=== PATIENT | female | born 1945 | race Caucasian/White ===

== ENCOUNTER 2017-01-23 18:43 | Inpatient (IN) | payer MEDICARE ==
[~2017-01-23] VITALS: Ht 152.4 cm; Wt 53.9 kg
[2017-01-23 18:51] VITALS: BP 203/110; PULSE 113; RESP 24; TEMP 98.4; O2SAT 98
--- NOTE | 2017-01-23 18:59 | PD ---
GUILLERMO . PATSY Chief Complaint: Psychiatric Symptoms Time Seen by Provider: 18:59 Travel History International Travel<30 days: No Contact w/Intl Traveler<30days: No Traveled to known affect area: No History of Present Illness HPI 71-year-old female with history of dementia here under Rueda act. Patient apparently was sent to an assisted living facility today and all of a sudden became very aggressive towards staff. She was disturbing all of the other residents and was brought in under Rueda act. Patient has no recollection of what went on. She has no idea where she is. She denies any suicide or homicidal ideation. She is very loud, aggressive and agitated. PFSH Past Medical History Dementia: Yes Social History Alcohol Use: No Tobacco Use: No Substance Use: No Allergies-Medications (Allergen,Severity, Reaction): Coded Allergies: No Known Allergies (Verified Allergy, Unknown, 01/23/17) Reported Meds & Prescriptions Reported Meds & Active Scripts Active No Active Prescriptions or Reported Medications Review of Systems General / Constitutional: No: Fever Eyes: No: Visual changes HENT: No: Headaches Cardiovascular: No: Chest Pain or Discomfort Respiratory: No: Shortness of Breath Gastrointestinal: No: Abdominal Pain Genitourinary: No: Dysuria Musculoskeletal: No: Pain Skin: No Rash Neurologic: No: Weakness Psychiatric: Positive: Disorder of Thought, No: Depression Endocrine: No: Polydipsia Hematologic/Lymphatic: No: Easy Bruising Physical Exam Narrative GENERAL: AAO x 1, SKIN: Warm and dry. No visible rashes or bruising. HEAD: Normocephalic and atraumatic. EYES: No scleral icterus. No injection or drainage. EOM intact, PERRLA ENT: No nasal drainage noted. Mucous membranes pink. Airway patent. NECK: Supple, trachea midline. No JVD. CARDIOVASCULAR: Regular rate and rhythm without murmurs, gallops, or rubs. RESPIRATORY: Breath sounds equal bilaterally. No accessory muscle use. No rhonchi or rales. GASTROINTESTINAL: Abdomen soft, non-tender, nondistended. No rebound or guarding EXTREMITIES: No cyanosis or edema. BACK: No obvious deformity. No CVA tenderness. NEURO: Grossly intact PSYCH: AAO x 1, agitated and aggressive Data Data Last Documented VS Vital Signs Date Time Temp Pulse Resp B/P (MAP) Pulse Ox O2 Delivery O2 Flow Rate FiO2 01/23/17 20:27 97 16 145/63 (90) 97 Room Air 01/23/17 18:51 98.4 Orders Orders Complete Blood Count With Diff (01/23/17 19:04) Comprehensive Metabolic Panel (01/23/17 19:04) Urinalysis - C+S If Indicated (01/23/17 19:04) Psych Screen (01/23/17 19:04) Drug Screen, Random Urine (01/23/17:04) ^ Sitter (01/23/17 19:04) Lorazepam Inj (Ativan Inj) (01/23/17 19:30) Labs Laboratory Tests Test 01/23/17 19:30 01/23/17 20:00 White Blood Count 16.4 TH/MM3 Red Blood Count 4.82 MIL/MM3 Hemoglobin 14.2 GM/DL Hematocrit 43.7 % Mean Corpuscular Volume 90.6 FL Mean Corpuscular Hemoglobin 29.4 PG Mean Corpuscular Hemoglobin Concent 32.5 % Red Cell Distribution Width 13.5 % Platelet Count 291 TH/MM3 Mean Platelet Volume 10.6 FL Neutrophils (%) (Auto) 82.0 % Lymphocytes (%) (Auto) 10.9 % Monocytes (%) (Auto) 6.1 % Eosinophils (%) (Auto) 0.4 % Basophils (%) (Auto) 0.6 % Neutrophils # (Auto) 13.5 TH/MM3 Lymphocytes # (Auto) 1.8 TH/MM3 Monocytes # (Auto) 1.0 TH/MM3 Eosinophils # (Auto) 0.1 TH/MM3 Basophils # (Auto) 0.1 TH/MM3 CBC Comment DIFF FINAL Differential Comment Blood Urea Nitrogen 10 MG/DL Creatinine 1.05 MG/DL Total Protein 8.1 GM/DL Albumin 4.1 GM/DL Calcium Level 9.1 MG/DL Alkaline Phosphatase 114 U/L Aspartate Amino Transf (AST/SGOT) 60 U/L Alanine Aminotransferase (ALT/SGPT) 28 U/L Total Bilirubin 0.8 MG/DL Sodium Level 136 MEQ/L Potassium Level 5.6 MEQ/L Chloride Level 105 MEQ/L Carbon Dioxide Level 22.2 MEQ/L Anion Gap 9 MEQ/L Estimat Glomerular Filtration Rate 52 ML/MIN Urine Color YELLOW Urine Turbidity CLEAR Urine pH 5.0 Urine Specific [place] 1.010 Urine Protein NEG mg/dL Urine Glucose (UA) NEG mg/dL Urine Ketones 10 mg/dL Urine Occult Blood TRACE Urine Nitrite NEG Urine Bilirubin NEG Urine Urobilinogen LESS THAN 2.0 MG/DL Urine Leukocyte Esterase SMALL Urine RBC 1 /hpf Urine WBC 3 /hpf Urine Squamous Epithelial Cells <1 /hpf Urine Bacteria RARE /hpf Microscopic Urinalysis Comment CULT NOT INDICATED Urine Opiates Screen NEG Urine Barbiturates Screen NEG Urine Amphetamines Screen NEG Urine Benzodiazepines Screen NEG Urine Cocaine Screen NEG Urine Cannabinoids Screen NEG MDM Medical Decision Making Medical Screen Exam Complete: Yes Emergency Medical Condition: Yes Medical Record Reviewed: Yes Differential Diagnosis Dementia, adjustment disorder, stress reaction Narrative Course 71-year-old female here on a Rueda act for aggressive behavior. Her blood pressures elevated, but she is very agitated. I think this may have something to do with her blood pressure. On examination patient does demonstrate some aggressive behavior. Labs have been ordered. Psych screen ordered. If labs are within normal limits , patient will be medically cleared for psych screen. Laboratory Tests Test 01/23/17 19:30 01/23/17 20:00 White Blood Count 16.4 TH/MM3 Red Blood Count 4.82 MIL/MM3 Hemoglobin 14.2 GM/DL Hematocrit 43.7 % Mean Corpuscular Volume 90.6 FL Mean Corpuscular Hemoglobin 29.4 PG Mean Corpuscular Hemoglobin Concent 32.5 % Red Cell Distribution Width 13.5 % Platelet Count 291 TH/MM3 Mean Platelet Volume 10.6 FL Neutrophils (%) (Auto) 82.0 % Lymphocytes (%) (Auto) 10.9 % Monocytes (%) (Auto) 6.1 % Eosinophils (%) (Auto) 0.4 % Basophils (%) (Auto) 0.6 % Neutrophils # (Auto) 13.5 TH/MM3 Lymphocytes # (Auto) 1.8 TH/MM3 Monocytes # (Auto) 1.0 TH/MM3 Eosinophils # (Auto) 0.1 TH/MM3 Basophils # (Auto) 0.1 TH/MM3 CBC Comment DIFF FINAL Differential Comment Blood Urea Nitrogen 10 MG/DL Creatinine 1.05 MG/DL Total Protein 8.1 GM/DL Albumin 4.1 GM/DL Calcium Level 9.1 MG/DL Alkaline Phosphatase 114 U/L Aspartate Amino Transf (AST/SGOT) 60 U/L Alanine Aminotransferase (ALT/SGPT) 28 U/L Total Bilirubin 0.8 MG/DL Sodium Level 136 MEQ/L Potassium Level 5.6 MEQ/L Chloride Level 105 MEQ/L Carbon Dioxide Level 22.2 MEQ/L Anion Gap 9 MEQ/L Estimat Glomerular Filtration Rate 52 ML/MIN Urine Color YELLOW Urine Turbidity CLEAR Urine pH 5.0 Urine Specific [place] 1.010 Urine Protein NEG mg/dL Urine Glucose (UA) NEG mg/dL Urine Ketones 10 mg/dL Urine Occult Blood TRACE Urine Nitrite NEG Urine Bilirubin NEG Urine Urobilinogen LESS THAN 2.0 MG/DL Urine Leukocyte Esterase SMALL Urine RBC 1 /hpf Urine WBC 3 /hpf Urine Squamous Epithelial Cells <1 /hpf Urine Bacteria RARE /hpf Microscopic Urinalysis Comment CULT NOT INDICATED Blood pressure improved to 145/63. Patient had to be given Ativan to calm her down. Potassium is 5.6, however hemolysis was noted. Her WBC is elevated and she has a left shift. UA appreciated. This is likely reactive and due to stress. I have discussed the case with my attending Dr. Ruff who will medically clear the patient. Diagnosis Primary Impression: Agitated Scripts No Active Prescriptions or Reported Meds Condition: Stable Mary Amaya Jan 23, 2017 18:59
[2017-01-23] MEDS ORDERED: LORazepam 2 MG/ML VIAL IV PUSH ONE (19:30)
[2017-01-23 19:49] LABS: AUTOMATED NEUTROPHIL # 13.5 TH/MM3 (1.8-7.7); BASOPHIL # 0.1 TH/MM3 (0-0.2); BASOPHIL % 0.6 % (0.0-2.0); EOSINOPHIL # 0.1 TH/MM3 (0-0.4); EOSINOPHIL % 0.4 % (0.0-4.0); HEMATOCRIT 43.7 % (35.0-46.0); HEMO FLAGS DIFF FINAL; LYMPH % 10.9 % (9.0-44.0); LYMPHOCYTE # 1.8 TH/MM3 (1.0-4.8); MEAN CELL VOLUME 90.6 FL (80.0-100.0); MEAN CORPUSCULAR HEMOGLOBIN 29.4 PG (27.0-34.0); MEAN CORPUSCULAR HGB CONC 32.5 % (32.0-36.0); MONO % 6.1 % (0.0-8.0); PLATELET COUNT 291 TH/MM3 (150-450); RED BLOOD COUNT 4.82 MIL/MM3 (4.00-5.30); RED CELL DISTRIBUTION WIDTH 13.5 % (11.6-17.2); WHITE BLOOD COUNT 16.4 TH/MM3 (4.0-11.0)
[2017-01-23 20:07] LABS: ALKALINE PHOSPHATASE 114 U/L (45-117); ALT (GPT) 28 U/L (10-53); TOTAL BILIRUBIN ADULT 0.8 MG/DL (0.2-1.0)
[2017-01-23 20:18] LABS: BLOOD UREA NITROGEN 10 MG/DL (7-18); GLOMERULAR FILTRATION RATE 52 ML/MIN (>89)
[2017-01-23 20:19] LABS: ANION GAP 9 MEQ/L (5-15); AST (GOT) 60 U/L (15-37); BICARBONATE 22.2 MEQ/L (21.0-32.0); CHLORIDE 105 MEQ/L (98-107); POTASSIUM 5.6 MEQ/L (3.5-5.1); SODIUM (NA) 136 MEQ/L (136-145)
[2017-01-23 20:26] LABS: BACTERIA, URINE RARE /hpf; BLOOD, URINE TRACE (NEG); COMMENT (UR) CULT NOT INDICATED; CULTURE IF INDICATED CULT NOT INDICATED; GLUCOSE,URINE NEG (NEG); KETONE, URINE 10 mg/dL (NEG); NITRITE,URINE NEG (NEG); SQUAMOUS EPITHELIAL CELL URINE <1 /hpf (0-5); URINE COLOR YELLOW (YELLW/STRAW)
[2017-01-23 20:27] VITALS: BP 145/63; PULSE 97; RESP 16; O2SAT 97
[2017-01-23 22:00] VITALS: BP 168/79; PULSE 117; RESP 17; TEMP 96.7; O2SAT 91
[2017-01-24 02:08] VITALS: BP 95/53; PULSE 97; RESP 18; TEMP 98; O2SAT 98
[2017-01-24] MEDS ORDERED: ACETAMINOPHEN 325 MG TAB PO PRN (07:00)
[2017-01-24] MEDS ORDERED: ALUMINUM/MAGNESIUM/SIMETH 30 ML CUP PO PRN (07:00)
[2017-01-24] MEDS ORDERED: MAGNESIUM HYDROXIDE SUSP 30 ML CUP PO PRN (07:00)
[2017-01-24 08:30] VITALS: BP 128/59; PULSE 92; RESP 18; TEMP 97.8; O2SAT 97
[2017-01-24] MEDS: NICOTINE 21 MG/24 HR PATCH T-DERMAL SCH ×3 (09:00→12:43)
[2017-01-24] MEDS: REMOVE OLD NICOTINE PATCH T-DERMAL SCH ×3 (09:05→21:00)
[2017-01-24] MEDS: LORazepam 0.5 MG TAB age > 65 yrs PO PRN (11:40)
[2017-01-24] MEDS ORDERED: HALOPERIDOL LACTATE 5 MG/ML AMP IM ONE (12:15)
[2017-01-24] MEDS ORDERED: LORazepam 2 MG/ML VIAL IM ONE (12:15)
[2017-01-24 16:45] VITALS: BP 138/66; PULSE 94; RESP 18; TEMP 97.9; O2SAT 96
[2017-01-24] MEDS: traZODone HCL 50 MG TAB PO PRN (22:33)
[2017-01-24] MEDS: LORazepam 2 MG/ML VIAL - age > 65 yrs IM PRN (22:35)
[2017-01-25 06:15] VITALS: BP 116/58; PULSE 83; RESP 16; TEMP 97.3; O2SAT 97
--- NOTE | 2017-01-25 18:27 | HHI.HP ---
Provisional Diagnosis Admission Date Jan 24, 2017 at 06:38 [place] I. Neurocognitive disorder with behavioral disturbance [place] II. deferred [place] III. denies [place] IV. limited social support, [place] V. 35 Certification of Person's Competence To Provide Express and Informed Consent I have personally examined Maria Antonia Arreola , a person being served at [facility] on, Jan 25, 2017 18:26. Express and informed consent means consent voluntarily given in writing, by a competent person, after sufficient explanation and disclosure of the subject matter involved to enable the person to make a knowing and willful decision without any element of force, fraud, deceit, duress, or other form of constraint or coercion. This person is 18 years of age or older, is not now known to be incompetent to consent to treatment with a guardian advocate, and does not have a health care surrogate or proxy currently making medical treatment decisions. I have found this person to be one of the following: [] Competent to provide express and informed consent, as defined above, for voluntary admission to this facility and is competent to provide express and informed consent for treatment. He/she has the consistent capacity to make well reasoned, willful, and knowing decisions concerning his or her medical or mental health treatment. The person fully and consistently understands the purpose of the admission for examination/placement and is fully capable of personally exercising all rights [place] [x] Incompetent to provide express and informed consent to voluntary admission, and this is incompetent to provide express and informed consent to treatment. The person must be transferred to involuntary status and a petition for a guardian advocate filed with the Circuit Court. [] Refusing to provide express and informed consent to voluntary admission but is competent to provide express and informed consent for treatment. The person must be discharged or transferred to involuntary status. Form shall be completed within 24 hours of a person's arrival at the receiving facility and filed in the clinical record of each person: 1. Admitted on a voluntary basis 2. Permitted to provide express and informed consent to his/her own treatment 3. Allowed to transfer from involuntary to voluntary status 4. Prior to permitting a person to consent to his or her own treatment after having been previously found incompetent to consent to treatment. History of Present Illness Capacity: Lacks Capacity HPI Patient is a 71 y/o woman, , recently moved into a [facility] , past psychiatric history of dementia, no prior psychiatric hospitalizations, no prior suicide attempts or self injurious behavior who had become aggressive towards staff and other residents and was brought to the ED under Rueda act for threatening behavior and confusion. Patient in the ED was agitated and required Ativan IM and after patient was moved to the inpatient unit she pushed herself into the nurses station which despite redirection required Haldol and Ativan ETO. Patient was seen on the inpatient psychiatry sitting on hospital chair in the common area watching television and was able to engage in interview. Patient states feeling fine, does not recall events that brought her to the hospital nor how she arrived or having been agitated yesterday. She is currently oriented to person only. She reports sleeping well, no problem with energy, appetite, decreased concentration, denies any depressive, manic or psychotic symptoms. Currently report feeling ok, denies SI, HI, AVH or delusions a this time. Patient noted to be very guarded and superficially cooperative. Past psychiatric history: denies previous psychiatric diagnosis, denies psychiatric admissions, denies previous suicide attempts or self injurious behavior. Denies previous medication trials Substance use history: reports history of tobacco an alcohol use, reports drinking once per week, usually one bottle of wine, last drink was 3 weeks ago. Past medical history: denies Allergies: NKDA Social history: , previously living with but recently moved into an [facility], no children, previously worked as a admin secretary. Review of Systems Except as stated in HPI: all other systems reviewed are Neg Past Psych History Violence risk - others (6 mos) moderate Violence risk - self (6 mos) low Substance Abuse History Drugs/Alcohol past 12 months reports history of tobacco an alcohol use, reports drinking once per week, usually one bottle of wine, last drink was 3 weeks ago. Past Family Social History Coded Allergies: No Known Allergies (Verified Allergy, Unknown, 01/23/17) No Active Prescriptions or Reported Meds Current Medications Medications (Trade) Dose Ordered Sig/Klarissa Route Start Time Stop Time Status Last Admin (Ativan) 0.5 mg Q12H PRN PO 01/24/17 07:00 01/24/17 11:40 (Ativan Inj) 0.5 mg Q12H PRN IM 01/24/17 07:00 01/24/17 22:35 (Desyrel) 50 mg HS PRN PO 01/24/17 07:00 01/24/17 22:33 (Tylenol) 650 mg Q4H PRN PO 01/24/17 07:00 (Milk Of Magnesia Liq) 30 ml DAILY PRN PO 01/24/17 07:00 (Mag-Al Plus Susp Liq) 30 ml Q6H PRN PO 01/24/17 07:00 (Habitrol 21 Mg Patch.24 Hr) 1 patch DAILY T-DERMAL 01/24/17 09:00 Miscellaneous Information 1 HS T-DERMAL 01/24/17 21:00 01/24/17 21:00 (Haldol) 2 mg HS PO 01/25/17 21:00 Social History , previously living with but recently moved into an [facility] , no children, previously worked as a admin secretary. Patient's Strengths (min. 2) verbal and communicative Physical Exam Patient found to be in no acute distress, no noted gross motor abnormalities, no tremors of EPS, no noted psychomotor agitation of retardation. Vital Signs Vital Signs Date Time Temp Pulse Resp B/P (MAP) Pulse Ox O2 Delivery O2 Flow Rate FiO2 01/25/17 06:15 97.3 83 16 116/58 (77) 97 01/24/17 02:08 Room Air Mental Status Examination Appearance appears stated age, in hospital [facility], calm and superficially cooperative with interview, fair eye contact Speech: Unremarkable Orientation: Person Memory: Recent (impaired) Thought Process: Linear Thought Content: Unremarkable Fund of Knowledge fluent and spontaneous Hallucination Type: None Attention and Concentration: Good Suicidal Ideation: No Previous Suicide Attempts: No Homicidal Ideation: No Previous Homicide Attempts: No Insight: Poor Judgment: Poor Affect: Other (constricted) Affect if Inappropriate: Blunt Mood: Other ("ok") Motor Activity: Normal gait Assessment & Plan Problem List: (1) Dementia associated with other underlying disease with behavioral disturbance ICD Codes: F02.81 - Dementia in other diseases classified elsewhere with behavioral disturbance Assessment & Plan Estimated LOS: days Discharge Planning Patient is a 71 y/o woman, with a history of dementia who was brought under Rueda act for aggressive behavior at living facility as well as confusion. Will start Haloperidol 2mg PO HS. Will continue to monitor mood and behavior as well as medication response and possible ADRs. Patient to continue recommendations as per primary medical team. Discharge planning in progress. Request HC Surrog/Guard Advoc?: Yes Freedom Martinez MD Jan 25, 2017 18:27
[2017-01-25 20:57] LABS: AUTOMATED NEUTROPHIL # 8.3 TH/MM3 (1.8-7.7); BASOPHIL # 0.1 TH/MM3 (0-0.2); BASOPHIL % 0.5 % (0.0-2.0); EOSINOPHIL # 0.1 TH/MM3 (0-0.4); EOSINOPHIL % 1.2 % (0.0-4.0); HEMO FLAGS DIFF FINAL; MEAN CELL VOLUME 90.2 FL (80.0-100.0); MEAN CORPUSCULAR HEMOGLOBIN 29.6 PG (27.0-34.0); MEAN CORPUSCULAR HGB CONC 32.8 % (32.0-36.0); NEUT % 73.3 % (16.0-70.0); PLATELET COUNT 264 TH/MM3 (150-450); RED BLOOD COUNT 4.66 MIL/MM3 (4.00-5.30); RED CELL DISTRIBUTION WIDTH 13.3 % (11.6-17.2); WHITE BLOOD COUNT 11.4 TH/MM3 (4.0-11.0)
[2017-01-25] MEDS ORDERED: HALOPERIDOL 2 MG TAB PO SCH (21:00)
[2017-01-25 21:13] LABS: BICARBONATE 23.5 MEQ/L (21.0-32.0); POTASSIUM 3.4 MEQ/L (3.5-5.1)
[2017-01-25] MEDS: LORazepam 2 MG/ML VIAL - age > 65 yrs IM PRN (23:37)
[2017-01-25] MEDS: traZODone HCL 50 MG TAB PO PRN (23:38)
[2017-01-26] MEDS ORDERED: LORazepam 2 MG/ML VIAL IM ONE (02:15)
[2017-01-26] MEDS ORDERED: HALOPERIDOL LACTATE 5 MG/ML AMP IM ONE (02:15)
[2017-01-26 02:30] VITALS: BP 159/74; PULSE 104; RESP 20; O2SAT 97
[2017-01-26 06:28] VITALS: BP 133/61; PULSE 94; RESP 17; TEMP 97.9
[2017-01-26] MEDS: NICOTINE 21 MG/24 HR PATCH T-DERMAL SCH (09:00)
[2017-01-26 09:55] LABS: HDL CHOLESTEROL 55.7 MG/DL (40.0-60.0)
--- NOTE | 2017-01-26 11:04 | PD.PSY.CON ---
Provisional Diagnosis Admission Date Jan 24, 2017 at 06:38 [place] I. 1. Dementia with behavioral disturbance [place] II. Deferred History of Present Illness Service Psychiatry Consult Requested By Dr. Martinez Reason for Consult Second opinion for involuntary psychiatric hospitalization Primary Care Physician Unknown HPI From Dr. Martinez's H&P: Patient is a 71 y/o woman, , recently [facility] into a [facility] , past psychiatric history of dementia, no prior psychiatric hospitalizations, no prior suicide attempts or self injurious behavior who had become aggressive towards staff and other residents and was brought to the ED under Rueda act for threatening behavior and confusion. Patient in the ED was agitated and required Ativan IM and after patient was moved to the inpatient unit she pushed herself into the nurses station which despite redirection required Haldol and Ativan ETO. Patient was seen on the inpatient psychiatry sitting on hospital chair in the common area watching television and was able to engage in interview. Patient states feeling fine, does not recall events that brought her to the hospital nor how she arrived or having been agitated yesterday. She is currently oriented to person only. She reports sleeping well, no problem with energy, appetite, decreased concentration, denies any depressive, manic or psychotic symptoms. Currently report feeling ok, denies SI, HI, AVH or delusions a this time. Patient noted to be very guarded and superficially cooperative. Past psychiatric history: denies previous psychiatric diagnosis, denies psychiatric admissions, denies previous suicide attempts or self injurious behavior. Denies previous medication trials Substance use history: reports history of tobacco an alcohol use, reports drinking once per week, usually one bottle of wine, last drink was 3 weeks ago. Past medical history: denies Allergies: NKDA Social history: , previously living with but recently moved into an [facility], no children, previously worked as a dental secretary. On my examination today: Patient seen and examined. Chart reviewed. Case discussed with nursing staff. On my examination today, the patient presents as quite confused. She is oriented to person only. She is able to name one of 2 items but cannot repeat a phrase. Focus and concentration impaired. She exhibits some utilization behavior. No SI or HI voiced. No psychotic symptoms. Psychiatric interview was quite limited as a consequence of the patient's degree of cognitive impairment, and for this reason as well I am unable to obtain any meaningful past psychiatric, family, chemical dependency or social history at this time. Review of Systems ROS Limitations: Poor Historian Other Limited ROS secondary to cognitive impairment Past Family Social History Coded Allergies: No Known Allergies (Verified Allergy, Unknown, 01/23/17) Past Medical History see electronic medical record No Active Prescriptions or Reported Meds Current Medications Medications (Trade) Dose Ordered Sig/Klarissa Route Start Time Stop Time Status Last Admin (Ativan) 0.5 mg Q12H PRN PO 01/24/17 07:00 01/24/17 11:40 (Ativan Inj) 0.5 mg Q12H PRN IM 01/24/17 07:00 01/25/17 23:37 (Desyrel) 50 mg HS PRN PO 01/24/17 07:00 01/25/17 23:38 (Tylenol) 650 mg Q4H PRN PO 01/24/17 07:00 (Milk Of Magnesia Liq) 30 ml DAILY PRN PO 01/24/17 07:00 (Mag-Al Plus Susp Liq) 30 ml Q6H PRN PO 01/24/17 07:00 (Habitrol 21 Mg Patch.24 Hr) 1 patch DAILY T-DERMAL 01/24/17 09:00 Miscellaneous Information 1 HS T-DERMAL 01/24/17 21:00 01/24/17 21:00 (Haldol) 2 mg HS PO 01/25/17 21:00 01/25/17 21:03 Patient's Strengths (min. 2) In a monitored setting. Retain some verbal fluency. Physical Exam Physical exam completed by ED provider. On my examination today, the patient appears to be in no acute physical distress. No motor abnormalities noted. Labs and vitals reviewed: Vital Signs Vital Signs Date Time Temp Pulse Resp B/P (MAP) Pulse Ox O2 Delivery O2 Flow Rate FiO2 01/26/17 06:28 97.9 94 17 133/61 (85) 01/26/17 02:30 97 01/24/17 02:08 Room Air I/O 01/26/17 01/26/17 01/27/17 08:00 16:00 00:00 Intake Total 240 ml Balance 240 ml Lab Results Test 01/25/17 20:17 01/26/17 08:09 White Blood Count 11.4 TH/MM3 Red Blood Count 4.66 MIL/MM3 Hemoglobin 13.8 GM/DL Hematocrit 42.0 % Mean Corpuscular Volume 90.2 FL Mean Corpuscular Hemoglobin 29.6 PG Mean Corpuscular Hemoglobin Concent 32.8 % Red Cell Distribution Width 13.3 % Platelet Count 264 TH/MM3 Mean Platelet Volume 10.8 FL Neutrophils (%) (Auto) 73.3 % Lymphocytes (%) (Auto) 18.0 % Monocytes (%) (Auto) 7.0 % Eosinophils (%) (Auto) 1.2 % Basophils (%) (Auto) 0.5 % Neutrophils # (Auto) 8.3 TH/MM3 Lymphocytes # (Auto) 2.0 TH/MM3 Monocytes # (Auto) 0.8 TH/MM3 Eosinophils # (Auto) 0.1 TH/MM3 Basophils # (Auto) 0.1 TH/MM3 CBC Comment DIFF FINAL Differential Comment Blood Urea Nitrogen 21 MG/DL Creatinine 0.93 MG/DL Random Glucose 122 MG/DL Calcium Level 9.3 MG/DL Sodium Level 139 MEQ/L Potassium Level 3.4 MEQ/L Chloride Level 106 MEQ/L Carbon Dioxide Level 23.5 MEQ/L Anion Gap 10 MEQ/L Estimat Glomerular Filtration Rate 60 ML/MIN Vitamin B12 Level 291 PG/ML Thyroid Stimulating Hormone 3rd Gen 2.190 uIU/ML Triglycerides Level 137 MG/DL Cholesterol Level 216 MG/DL LDL Cholesterol 133 MG/DL HDL Cholesterol 55.7 MG/DL Cholesterol/HDL Ratio 3.87 RATIO Mental Status Examination No motor abnormalities noted Appearance In hospital gown. Disheveled. Speech: Other (rambling) Orientation: Person Memory: Impaired (describe) Thought Process: Other (paucity of thought) Thought Content: Other (no darryl delusions elicited) Language Vague Fund of Knowledge Impaired Hallucination Type: None Attention and Concentration: Easily Distracted Suicidal Ideation: No Homicidal Ideation: No Insight: Poor Judgment: Poor Affect if Inappropriate: Blunt Mood: Other (no issues with mood reported) Assessment & Plan Problem List: (1) Dementia associated with other underlying disease with behavioral disturbance ICD Codes: F02.81 - Dementia in other diseases classified elsewhere with behavioral disturbance Assessment & Plan Given the circumstances of the patient's presentation here and her presentation on my examination today, I concur with Dr. Martinez that the patient meets criteria for involuntary psychiatric hospitalization under the Rueda act. I have completed the second opinion paperwork. Further care as per Dr. Martinez. Thank you very much for this consultation. Signing off. Discharge Planning Per Dr. Martinez Request HC Surrog/Guard Advoc?: Yes Shamar Suresh MD Jan 26, 2017 11:04
--- NOTE | 2017-01-26 14:19 | HHI.PYPN ---
Subjective Remarks Patient seen for follow up; chart reviewed. Patient found in day room spending time with her who can do visit. spoke with copywriter and counselor , prognosis and plan post discharge. was noted to be tearful and emotional when speaking about the care of his . He states that he will attempt to look for appropriate housing for his as he states is unable to care for her by himself. Patient related visited by copywriter and stated feeling well denied any physical complaints at this time. Patient does not recall being visited by her but she recall the agitation that she had last evening. Patient continues to be confused and oriented only to person. Review of Systems Except as stated in HPI: all other systems reviewed are Neg Objective Alert: Yes [place]: Person Mood: Calm Affect: Restricted (with occasional smiling) Memory Intact: Comment (impaired) Hallucinations: Other (denies) Delusions: No Delusion Type: Other (denies) Suicidal: Ideation (denies) Homicidal: Ideation (denies) Insight/Judgment Poor insight, impulse control and judgment Labs Test 01/25/17 20:17 01/26/17 08:09 White Blood Count 11.4 TH/MM3 Red Blood Count 4.66 MIL/MM3 Hemoglobin 13.8 GM/DL Hematocrit 42.0 % Mean Corpuscular Volume 90.2 FL Mean Corpuscular Hemoglobin 29.6 PG Mean Corpuscular Hemoglobin Concent 32.8 % Red Cell Distribution Width 13.3 % Platelet Count 264 TH/MM3 Mean Platelet Volume 10.8 FL Neutrophils (%) (Auto) 73.3 % Lymphocytes (%) (Auto) 18.0 % Monocytes (%) (Auto) 7.0 % Eosinophils (%) (Auto) 1.2 % Basophils (%) (Auto) 0.5 % Neutrophils # (Auto) 8.3 TH/MM3 Lymphocytes # (Auto) 2.0 TH/MM3 Monocytes # (Auto) 0.8 TH/MM3 Eosinophils # (Auto) 0.1 TH/MM3 Basophils # (Auto) 0.1 TH/MM3 CBC Comment DIFF FINAL Differential Comment Blood Urea Nitrogen 21 MG/DL Creatinine 0.93 MG/DL Random Glucose 122 MG/DL Calcium Level 9.3 MG/DL Sodium Level 139 MEQ/L Potassium Level 3.4 MEQ/L Chloride Level 106 MEQ/L Carbon Dioxide Level 23.5 MEQ/L Anion Gap 10 MEQ/L Estimat Glomerular Filtration Rate 60 ML/MIN Vitamin B12 Level 291 PG/ML Thyroid Stimulating Hormone 3rd Gen 2.190 uIU/ML Triglycerides Level 137 MG/DL Cholesterol Level 216 MG/DL LDL Cholesterol 133 MG/DL HDL Cholesterol 55.7 MG/DL Cholesterol/HDL Ratio 3.87 RATIO Vitals/IOs Vital Signs Date Time Temp Pulse Resp B/P (MAP) Pulse Ox O2 Delivery O2 Flow Rate FiO2 01/26/17 06:28 97.9 94 17 133/61 (85) 01/26/17 02:30 97 01/24/17 02:08 Room Air Intake and Output 01/26/17 01/26/17 01/27/17 08:00 16:00 00:00 Intake Total 240 ml Balance 240 ml Assessment & Plan Problem List: (1) Dementia associated with other underlying disease with behavioral disturbance ICD Codes: F02.81 - Dementia in other diseases classified elsewhere with behavioral disturbance Assessment & Plan Patient this time continues to be confused secondary to neurocognitive deficits. Patient had episode of agitation likely secondary to sundowning. Will increase haloperidol to 5mg PO HS. EKG ordered for monitoring of QTc. Discharge planning in progress. Justification for Cont. Inpt. At risk for decompensation if it lower level of care Request HC Surrog/Guard Advoc?: Yes Freedom Martinez MD Jan 26, 2017 14:19
[2017-01-26 16:19] LABS: HEMOGLOBIN A1a 0.8 %; HEMOGLOBIN Ao 84.9 %; HEMOGLOBIN LA1C 2.1 %; HEMOGLOBIN P3 3.8 %
[2017-01-26] MEDS: traZODone HCL 50 MG TAB PO PRN (20:44)
[2017-01-26] MEDS: LORazepam 2 MG/ML VIAL - age > 65 yrs IM PRN (20:45)
[2017-01-26] MEDS: HALOPERIDOL 5 MG TAB PO SCH (20:45)
[2017-01-26] MEDS: REMOVE OLD NICOTINE PATCH T-DERMAL SCH (21:00)
[2017-01-27] MEDS: NICOTINE 21 MG/24 HR PATCH T-DERMAL SCH (09:00)
[2017-01-27] MEDS: LORazepam 0.5 MG TAB age > 65 yrs PO PRN (09:54)
--- NOTE | 2017-01-27 17:00 | EKG ---
Date Performed: 01/26/2017 Time Performed: 18:52:37 PTAGE: 71 years EKG: Sinus rhythm NORMAL ECG NO PREVIOUS TRACING DOCTOR: Hood Bautista Interpretating Date/Time 01/27/2017 16:58:49
--- NOTE | 2017-01-27 17:00 | HHI.PYPN ---
Subjective Remarks Pt seen and discussed with staff. She was agitated last night but has been more calm today. She had some mild aggression but was able to be redirected. She is pleasant during interview and denies pain or discomfort. Objective Alert: Yes [place]: Person Mood: Calm Affect: Restricted Memory Intact: Comment (impaired) Hallucinations: Other (denies) Delusions: No Delusion Type: Other (denies) Suicidal: Ideation (denies) Homicidal: Ideation (denies) Insight/Judgment poor Vitals/IOs Vital Signs Date Time Temp Pulse Resp B/P (MAP) Pulse Ox O2 Delivery O2 Flow Rate FiO2 01/26/17 06:28 97.9 94 17 133/61 (85) 01/26/17 02:30 97 01/24/17 02:08 Room Air Intake and Output 01/27/17 01/27/17 01/28/17 08:00 16:00 00:00 Intake Total 120 ml 120 ml Balance 120 ml 120 ml Assessment & Plan Problem List: (1) Dementia associated with other underlying disease with behavioral disturbance ICD Codes: F02.81 - Dementia in other diseases classified elsewhere with behavioral disturbance Assessment & Plan Continue current tx plan Estimated LOS: days Justification for Cont. Inpt. agitaiton Request HC Surrog/Guard Advoc?: Yes Anya Lee MD Jan 27, 2017 17:00
[2017-01-27 18:00] VITALS: BP 135/60; PULSE 83; RESP 16; TEMP 97.7; O2SAT 96
[2017-01-27] MEDS: REMOVE OLD NICOTINE PATCH T-DERMAL SCH (21:00)
[2017-01-27] MEDS: traZODone HCL 50 MG TAB PO PRN (21:57)
[2017-01-27] MEDS: HALOPERIDOL 5 MG TAB PO SCH (21:57)
[2017-01-28] MEDS: LORazepam 0.5 MG TAB age > 65 yrs PO PRN (08:00)
[2017-01-28] MEDS: NICOTINE 21 MG/24 HR PATCH T-DERMAL SCH (08:55)
--- NOTE | 2017-01-28 11:09 | HHI.PYPN ---
Subjective Remarks Pt seen and discussed with staff. She was agitated and aggressive this morning and required ativan x1 to maintain safety. She has been calm , but alert for the rest of the morning. She is compliant with medications but agitated during personal care Appetite is good. No SI/HI. Objective Alert: Yes [place]: Person Mood: Calm Affect: Restricted Memory Intact: Comment (impaired) Hallucinations: Other (none) Delusions: No Delusion Type: Other (denies) Suicidal: Ideation (denies) Homicidal: Ideation (denies) Insight/Judgment poor Vitals/IOs Vital Signs Date Time Temp Pulse Resp B/P (MAP) Pulse Ox O2 Delivery O2 Flow Rate FiO2 01/27/17 18:00 97.7 83 16 135/60 (85) 96 Intake and Output 01/28/17 01/28/17 01/29/17 08:00 16:00 00:00 Intake Total 0 ml Balance 0 ml Assessment & Plan Problem List: (1) Dementia associated with other underlying disease with behavioral disturbance ICD Codes: F02.81 - Dementia in other diseases classified elsewhere with behavioral disturbance Assessment & Plan Continue current tx plan. Estimated LOS: days Justification for Cont. Inpt. agitation Request HC Surrog/Guard Advoc?: Yes Anya Lee MD Jan 28, 2017 11:09
[2017-01-28] MEDS: REMOVE OLD NICOTINE PATCH T-DERMAL SCH (21:00)
[2017-01-28] MEDS: traZODone HCL 50 MG TAB PO PRN (21:28)
[2017-01-28] MEDS: HALOPERIDOL 5 MG TAB PO SCH (21:28)
[2017-01-29 06:57] VITALS: BP 138/63; PULSE 101; RESP 16; TEMP 97.2; O2SAT 94
[2017-01-29] MEDS: NICOTINE 21 MG/24 HR PATCH T-DERMAL SCH (08:35)
[2017-01-29 17:14] VITALS: BP 155/66; PULSE 81; RESP 18; TEMP 97.8; O2SAT 99
--- NOTE | 2017-01-29 17:20 | HHI.PYPN ---
Subjective Remarks Patient seen for follow-up, chart reviewed. Patient found sitting in common area attempting to move things around. Patient noted to be irritable but engaged in interview superficially today. Patient states that she is feeling "fine", oriented to person only and doesn't recall when her has visited her. Patient requires redirection at times but has not been aggressive on the unit. and treatment team currently working to find placement for patient. Review of Systems Except as stated in HPI: all other systems reviewed are Neg Objective Alert: Yes [place]: Person Mood: Other ("fine") Affect: Other (irritable) Memory Intact: Comment (impaired) Hallucinations: Other (none) Delusions: No Delusion Type: Other (denies) Suicidal: Ideation (denies) Homicidal: Ideation (denies) Insight/Judgment poor insight, impulse control and judgment Vitals/IOs Vital Signs Date Time Temp Pulse Resp B/P (MAP) Pulse Ox O2 Delivery O2 Flow Rate FiO2 01/29/17 17:14 97.8 81 18 155/66 (95) 99 Intake and Output 01/29/17 01/29/17 01/30/17 08:00 16:00 00:00 Intake Total 0 ml 120 ml Balance 0 ml 120 ml Assessment & Plan Problem List: (1) Dementia associated with other underlying disease with behavioral disturbance ICD Codes: F02.81 - Dementia in other diseases classified elsewhere with behavioral disturbance Assessment & Plan Patient continues to be oriented to person, require redirection at times but has not had any aggressive behavior. Continue current treatment. Discharge planning in progress. Justification for Cont. Inpt. At risk for further decompensation if at lower level of care. Request HC Surrog/Guard Advoc?: Yes Freedom Martinez MD Jan 29, 2017 17:20
[2017-01-29] MEDS: REMOVE OLD NICOTINE PATCH T-DERMAL SCH (21:00)
[2017-01-29] MEDS: traZODone HCL 50 MG TAB PO PRN (21:00)
[2017-01-29] MEDS: HALOPERIDOL 5 MG TAB PO SCH (21:00)
[2017-01-29] MEDS: LORazepam 0.5 MG TAB age > 65 yrs PO PRN (21:00)
[2017-01-30 06:00] VITALS: BP 122/66; PULSE 98; RESP 15; TEMP 98; O2SAT 96
[2017-01-30] MEDS: NICOTINE 21 MG/24 HR PATCH T-DERMAL SCH (09:00)
[2017-01-30] MEDS ORDERED: HALO5TAB PO (12:02)
[2017-01-30] MEDS ORDERED: LORA-392 PO (12:02)
--- NOTE | 2017-01-30 16:21 | HHI.DS ---
Psychiatry Discharge Summary Inpatient Psychiatric care?: Yes Advance Directive: Yes Mental Health AdvanceDirective: No Health Care Proxy: Yes Admission Admission Date Jan 24, 2017 at 06:38 Admission Diagnosis: (1) Dementia associated with other underlying disease with behavioral disturbance ICD Code: F02.81 - Dementia in other diseases classified elsewhere with behavioral disturbance Brief History From Dr. Martinez's H&P: Patient is a 71 y/o woman, , recently moved into a penit[facility]iary , past psychiatric history of dementia, no prior psychiatric hospitalizations, no prior suicide attempts or self injurious behavior who had become aggressive towards staff and other residents and was brought to the ED under Rueda act for threatening behavior and confusion. Patient in the ED was agitated and required Ativan IM and after patient was moved to the inpatient unit she pushed herself into the nurses station which despite redirection required Haldol and Ativan ETO. Patient was seen on the inpatient psychiatry sitting on hospital chair in the common area watching television and was able to engage in interview. Patient states feeling fine, does not recall events that brought her to the hospital nor how she arrived or having been agitated yesterday. She is currently oriented to person only. She reports sleeping well, no problem with energy, appetite, decreased concentration, denies any depressive, manic or psychotic symptoms. Currently report feeling ok, denies SI, HI, AVH or delusions a this time. Patient noted to be very guarded and superficially cooperative. Past psychiatric history: denies previous psychiatric diagnosis, denies psychiatric admissions, denies previous suicide attempts or self injurious behavior. Denies previous medication trials Substance use history: reports history of tobacco an alcohol use, reports drinking once per week, usually one bottle of wine, last drink was 3 weeks ago. Past medical history: denies Allergies: NKDA Social history: , previously living with but recently moved into an penitentiary, no children, previously worked as a loan secretary. On my examination today: Patient seen and examined. Chart reviewed. Case discussed with nursing staff. On my examination today, the patient presents as quite confused. She is oriented to person only. She is able to name one of 2 items but cannot repeat a phrase. Focus and concentration impaired. She exhibits some utilization behavior. No SI or HI voiced. No psychotic symptoms. Psychiatric interview was quite limited as a consequence of the patient's degree of cognitive impairment, and for this reason as well I am unable to obtain any meaningful past psychiatric, family, chemical dependency or social history at this time. Tobacco Use In Past 30 Days: No Tobacco Past 30 Days Alcohol Use: Never Hospital Course Patient is a 71 y/o woman, , recently moved into a penitentiary , past psychiatric history of dementia, no prior psychiatric hospitalizations, no prior suicide attempts or self injurious behavior who had become aggressive towards staff and other residents and was brought to the ED under Rueda act for threatening behavior and confusion. Patient was admitted to the inpatient psychiatry unit for stabilization where she was initially noted to have required de-escalation and ETO. Patient was started on haloperidol 5mg PO HS which she responded well to with no further aggressive behavior. Patient noted to be oriented to person only throughout admission. Patient did not endorse feeling sad or depressed nor having suicidal ideation. Upon discharge patient had no physical complaints, noted to be calm and cooperative. Patient transferred to an GROUP HOME after discharge arranged by her . Results Blood Pressure 122 / 66 Vital Signs Date Time Temp Pulse Resp B/P (MAP) Pulse Ox O2 Delivery O2 Flow Rate FiO2 01/30/17 06:00 98.0 98 15 122/66 (84) 96 Laboratory Results Test 01/25/17 20:17 01/26/17 08:09 Hemoglobin A1c 5.7 % (4.3-6.0) Cholesterol Level 216 MG/DL (120-200) HDL Cholesterol 55.7 MG/DL (40.0-60.0) LDL Cholesterol 133 MG/DL (0-99) Triglycerides Level 137 MG/DL (42-150) Summary of Procedures none Pending results at discharge: No Medications # of Antipsychotic meds at D/C: 1 Approp Antipsych med options 1 - Minimum of three failed multiple trials of monotherapy. 2 - Documented plan to taper to monotherapy due to previous use of multiple meds OR cross-taper in progress at D/C. 3 - Documentation of augmentation of Clozapine. 4 - Justification other than those listed in allowable values 1-3, document here : Discharge Discharge Date: Jan 30, 2017 Discharge Diagnosis: (1) Dementia associated with other underlying disease with behavioral disturbance Diagnosis: Principal ICD Code: F02.81 - Dementia in other diseases classified elsewhere with behavioral disturbance Mental Status Exam at Disch Appearance/Behavior: appears stated age, in casual clothing, calm and cooperative with interview. Fair eye contact Speech: normal rate, tone and prosody Mood: "fine" Affect: euthymic TP: linear, organized TC: denies SI, HI, AVH or delusions Insight/Impulse control/judgment: poor/fair/limited A&O x 1 (person only) Pt Condition on Discharge: Stable Discharge Disposition: [facility]/GROUP HOME Discharge Instructions Diet Instructions: Heart Healthy Diet Activities you can perform: Regular-No Restrictions Scheduled Appointment: Lisa Vance Discharge Time > 30 minutes Discharge/Advance Care Plan Health Problems: (1) Dementia associated with other underlying disease with behavioral disturbance Goals to promote your health * To prevent worsening of your condition and complications * To maintain your health at the optimal level Directions to meet your goals Take your medications as prescribed Follow your dietary instruction Follow activity as directed Keep your appointments as scheduled Take your immunizations and boosters as scheduled If your symptoms worsen call your PCP, if no PCP go to Urgent Care Center or Emergency Room For 27/11 questions related to your inpatient stay or results of tests pending at discharge, please contact Dr. Freedom Martinez at Smoking is Dangerous to Your Health. Avoid second hand smoking Freedom Martinez MD Jan 30, 2017 16:21
== END 2017-01-30 14:46 | DRG 884 ==
LOC: NEPD 18:43 → NEDA 01-24 06:38 → H250 01-24 08:25
PROVIDERS: ADMIT Student in an Organized Health Care Education/Training Program; ATTEND Student in an Organized Health Care Education/Training Program
DX: F03.91 Unspecified dementia, unspecified severity, with behavioral disturbance (principal); Z87.891 Personal history of nicotine dependence
CPT/HCPCS: 80048; 80053; 80061; 80307; 81001; 82607; 83036; 84443; 85025; 93005; 96374; J1630; J2060